=== PATIENT | female | born 1955 | race African-American/Black ===

== ENCOUNTER 2017-10-25 08:33 | Emergency (ER) | payer OTHER ==
[~2017-10-25] VITALS: Ht 157.5 cm; Wt 91.0 kg
[2017-10-25] MEDS ORDERED: ACETAMINOPHEN 325MG TABLET PO ONE (15:30)
[2017-10-25] MEDS ORDERED: BACITRACIN ZINC OINT UDPKT TOP ONE (15:30)
[2017-10-25] MEDS ORDERED: LIDOCAINE HCL 1% 20ML VIAL (Pyxis) INJ MC ONE (15:30)
[2017-10-25] MEDS ORDERED: TETANUS, DIPHTHERIA, PERTUSSIS VAC/PF 0.5ML (>7YR OLD) IM ONE (15:30)
[2017-10-25 17:01] VITALS: BP 137/84
== END 2017-10-25 17:28 | disposition home or self-care (01) ==
LOC: ER 08:50
DX: S81.012A Laceration without foreign body, left knee, initial encounter (principal); M48.02 Spinal stenosis, cervical region; M25.78 Osteophyte, vertebrae; J32.0 Chronic maxillary sinusitis; M50.223 Other cervical disc displacement at C6-C7 level; Z98.890 Other specified postprocedural states; W19.XXXA Unspecified fall, initial encounter; Y93.89 Activity, other specified; Y92.89 Other specified places as the place of occurrence of the external cause; Y99.8 Other external cause status
CPT/HCPCS: 12011; 70450; 72125; 73562; 90471; 90715; 99284; J3490; X7700; Z7610

== ENCOUNTER 2017-11-04 07:10 | Emergency (ER) | payer OTHER ==
[~2017-11-04] VITALS: Ht 157.5 cm; Wt 91.0 kg
[2017-11-04 07:27] VITALS: BP 151/65
== END 2017-11-04 09:29 | disposition home or self-care (01) ==
LOC: ER 07:28
DX: S01.81XD Laceration without foreign body of other part of head, subsequent encounter (principal); Z53.21 Procedure and treatment not carried out due to patient leaving prior to being seen by health care provider; X58.XXXD Exposure to other specified factors, subsequent encounter
CPT/HCPCS: 99281; Z7610

== ENCOUNTER 2022-02-28 13:42 | Emergency (ER) | payer MEDICARE, OTHER ==
[~2022-02-28] VITALS: Ht 167.6 cm; Wt 105.0 kg
[2022-02-28] MEDS ORDERED: ASPIRIN 81MG TABLET PO ONE ×2 (14:45→15:00)
[2022-02-28 15:08] LABS: BASOPHILS % 0.9 % (0.0-2.0); EOSINOPHILS % 3.5 % (0.0-5.0); HEMATOCRIT. 40.7 % (36.0-48.0); HEMOGLOBIN. 13.3 g/dL (12.0-16.0); LYMPHOCYTES % 37.1 % (20.0-50.0); MEAN CORPUSCULAR HEMOGLOBIN 26.6 pg (28.0-32.0); MEAN CORPUSCULAR VOLUME 81.4 fL (81.0-99.0); MEAN PLATELET VOLUME 9.7 fl (7.4-10.4); MONOCYTES % 8.4 % (2.0-8.0); NEUTROPHILS % 50.1 % (40.0-76.0); PLATELET 250 x1000/uL (130-400); RED CELL DISTRIBUTION WIDTH 14.1 % (11.6-14.6)
[2022-02-28 15:17] LABS: CHLORIDE 106 mEq/L (98-107)
[2022-02-28 16:36] VITALS: BP 168/86
[2022-02-28] MEDS ORDERED: ASPIRIN 81MG TABLET ONE (16:59)
== END 2022-02-28 20:21 | disposition home or self-care (01) ==
LOC: ER 13:50
DX: M25.512 Pain in left shoulder (principal); M54.2 Cervicalgia; I10 Essential (primary) hypertension; Z98.890 Other specified postprocedural states
CPT/HCPCS: 36415; 71045; 73030; 80053; 83880; 84484; 85025; 93005; 99284